=== PATIENT | male | born 1990 | race Caucasian/White ===

== ENCOUNTER 2021-07-06 14:23 | Emergency (ER) | payer SELFPAY ==
[2021-07-06] MEDS ORDERED: Ketorolac Tromethamine 30 MG/ML VIAL ONE (16:41)
== END 2021-07-06 16:47 | disposition home or self-care (01) ==
LOC: CSHERS 14:23
DX: L05.01 Pilonidal cyst with abscess (principal); F17.210 Nicotine dependence, cigarettes, uncomplicated
CPT/HCPCS: 96372; 99282; J1885

== ENCOUNTER 2021-07-08 21:47 | Emergency (ER) | payer SELFPAY ==
[2021-07-08] MEDS ORDERED: Lidocaine 1% w/Epinephrine 1:100K 20 ML VIAL ONE (23:17)
[2021-07-08] MEDS ORDERED: Morphine 4 MG/ML VIAL ONE (23:59)
== END 2021-07-09 00:12 | disposition home or self-care (01) ==
LOC: CSHERS 21:47
DX: L05.01 Pilonidal cyst with abscess (principal); F17.210 Nicotine dependence, cigarettes, uncomplicated
CPT/HCPCS: 96372; 99283; J2270

== ENCOUNTER 2022-07-14 07:57 | Emergency (ER) | payer SELFPAY ==
[2022-07-14] MEDS ORDERED: Ondansetron PF 4 MG/2 ML Vial ONE (08:50)
[2022-07-14] MEDS ORDERED: Iopamidol 300 61% 100 ML VIAL FS ONE (09:17)
[2022-07-14 09:27] LABS: #Eosinphils 0.2 10x3/uL (0.0-0.5); #Monocytes 0.6 10x3/uL (0.0-1.1); #Neutrophils 12.1 10x3/uL (1.5-8.4); %Basophils 0.1 % (0.0-2.0); %Eosinophils 1.3 % (0.0-6.0); %Lymphocytes 4.7 % (18.0-47.0); %Monocytes 4.1 % (0.0-10.0); %Neutrophils 89.4 % (40.0-75.0); Hemoglobin 16.8 g/dL (13.5-17.5); Mean Corpuscular HGB CONC 35.4 g/dL (32.0-36.0); Mean Corpuscular Volume 90.3 fl (81.2-95.1); Mean Platelet Volume 10.4 fl (7.4-10.4); Platelet Count 245 10x3/uL (150-450); Red Blood Cell (RBC) Count 5.25 10x6/uL (4.32-5.72); White Blood Cell (WBC) Count 13.5 10x3/uL (3.5-10.5)
[2022-07-14 09:37] LABS: ALT (SGPT) 30 U/L (8-55); AST (SGOT) 33 U/L (5-34); Albumin 5.2 g/dL (3.5-5.0); Alkaline Phosphatase 55 U/L (40-110); Anion Gap 18 mmol/L (10-20); BUN (Urea Nitrogen) 18 mg/dL (8.9-20.6); Bilirubin, Total 0.9 mg/dL (0.2-1.2); Calc. Creatinine Clearance 0 mL/min (70-130); Calcium 10.3 mg/dL (7.8-10.44); Carbon Dioxide 19 mmol/L (22-29); Chloride 105 mmol/L (98-107); Estimated GFR 108; Globulin 3.4 g/dL (2.4-3.5); Glucose 105 mg/dL (70-105); Lipase 29 U/L (8-78); Potassium 4.5 mmol/L (3.5-5.1); Protein, Total 8.6 g/dL (6.0-8.3); Sodium 137 mmol/L (136-145)
== END 2022-07-14 11:37 | disposition home or self-care (01) ==
LOC: CSHERS 07:57
DX: R11.2 Nausea with vomiting, unspecified (principal); R10.9 Unspecified abdominal pain; R19.7 Diarrhea, unspecified; F17.210 Nicotine dependence, cigarettes, uncomplicated
CPT/HCPCS: 36415; 74177; 80053; 83690; 85025; 96361; 96374; J2405; Q9967

== ENCOUNTER 2022-11-09 07:29 | Emergency (ER) | payer BC, SELFPAY ==
[2022-11-09] MEDS ORDERED: traMADol HCl 50 MG TAB ONE (09:00)
[2022-11-09] MEDS ORDERED: predniSONE 20 MG TAB ONE (09:01)
== END 2022-11-09 09:26 | disposition home or self-care (01) ==
LOC: CSHERS 07:29
DX: S43.422A Sprain of left rotator cuff capsule, initial encounter (principal); F17.210 Nicotine dependence, cigarettes, uncomplicated; X50.9XXA Other and unspecified overexertion or strenuous movements or postures, initial encounter
CPT/HCPCS: 99283; J7512

== ENCOUNTER 2023-05-07 06:45 | Emergency (ER) | payer BC | END 2023-05-07 07:30 | disposition left against medical advice (07) | LOC: CSHERS 06:45 | DX: Z53.21 Procedure and treatment not carried out due to patient leaving prior to being seen by health care provider (principal) ==

== ENCOUNTER 2023-05-08 18:19 | Emergency (ER) | payer BC ==
[2023-05-08 19:22] LABS: Influenza A by NAA Not Detected (NotDetected); Influenza B by NAA Not Detected (NotDetected); SARS-CoV-2 NAA Rapid Test Not Detected (NotDetected)
== END 2023-05-08 19:46 | disposition home or self-care (01) ==
LOC: CSHERS 18:19
DX: J00 Acute nasopharyngitis [common cold] (principal); F17.210 Nicotine dependence, cigarettes, uncomplicated
CPT/HCPCS: 99283

== ENCOUNTER 2023-09-18 04:01 | Emergency (ER) | payer BC ==
[2023-09-18 04:34] LABS: #Basophils 0.06 10x3/uL (0.0-0.2); #Eosinphils 0.27 10x3/uL (0.0-0.5); #Monocytes 0.52 10x3/uL (0.0-1.1); #Neutrophils 3.95 10x3/uL (1.5-8.4); %Basophils 0.8 % (0.0-2.0); %Eosinophils 3.7 % (0.0-6.0); %Lymphocytes 34.8 % (18.0-47.0); %Neutrophils 53.6 % (40.0-75.0); Hematocrit 40.2 % (38.8-50.0); Hemoglobin 14.5 g/dL (13.5-17.5); Mean Corpuscular HGB CONC 36.1 g/dL (32.0-36.0); Mean Corpuscular Hemoglobin 33.3 pg (27.0-33.0); Mean Corpuscular Volume 92.2 fL (81.2-95.1); Mean Platelet Volume 10.1 fL (7.4-10.4); Platelet Count 226 10x3/uL (150-450); RBC Distribution Width 11.9 % (11.5-14.5); Red Blood Cell (RBC) Count 4.36 10x6/uL (4.32-5.72); White Blood Cell (WBC) Count 7.4 10x3/uL (3.5-10.5)
[2023-09-18 04:53] LABS: ALT (SGPT) 23 U/L (8-55); AST (SGOT) 27 U/L (5-34); Albumin 4.3 g/dL (3.5-5.0); Alkaline Phosphatase 56 U/L (40-110); Anion Gap 12 mmol/L (10-20); BUN (Urea Nitrogen) 13 mg/dL (8.9-20.6); Bilirubin, Total 0.2 mg/dL (0.2-1.2); Calc. Creatinine Clearance 0 mL/min (70-130); Carbon Dioxide 25 mmol/L (22-29); Chloride 102 mmol/L (98-107); Estimated GFR 105; Globulin 3.2 g/dL (2.4-3.5); Glucose 110 mg/dL (70-105); Potassium 3.4 mmol/L (3.5-5.1); Protein, Total 7.5 g/dL (6.0-8.3); Sodium 136 mmol/L (136-145)
[2023-09-18 04:59] LABS: Troponin I Less than 0.010 ng/mL (< 0.028)
[2023-09-18] MEDS ORDERED: Lorazepam 2 MG/ML VIAL ONE (05:09)
[2023-09-18] MEDS ORDERED: Ketorolac Tromethamine 30 MG (1 mL) VIAL ONE (05:10)
== END 2023-09-18 05:34 | disposition home or self-care (01) ==
LOC: CSHERS 04:01
DX: R07.2 Precordial pain (principal); F19.10 Other psychoactive substance abuse, uncomplicated; F17.210 Nicotine dependence, cigarettes, uncomplicated
CPT/HCPCS: 71045; 80053; 84484; 85025; 93005; 96374; 96375; J1885; J2060